=== PATIENT | male | born 1945 | race Caucasian/White ===

== ENCOUNTER → 2017-01-26 | Outpatient (CLI) | payer MEDICARE ==
--- NOTE | 2017-01-28 09:26 | RADIOLOGY REPORT (SQ) ---
EXAM DESCRIPTION: CT LUNG CANCER SCREENING COMPLETED DATE/TIME: 01/26/2017 3:26 pm REASON FOR STUDY: NICOTINE DEPENDENCE (F17.211) F17.211 NICOTINE DEPENDENCE, CIGARETTES, IN REMISSI ON Has the patient had a Chest CT scan within the past year? No Was the patient offered tobacco cessation counseling? No Was the patient engaged in shared decision making for this test? Yes Does the patient have signs or symptoms of Lung Cancer? No Is the patient a smoker? No How many packs per year? 365 How many years since quitting smoking? 12 years Patients age: 71 COMPARISON: None. TECHNIQUE: Low Dose CT scan performed of the chest without intravenous contrast for purposes of scre ening for lung cancer. Images reviewed with lung, soft tissue and bone windows. Reconstructed coron al and sagittal MPR images reviewed. All images stored on PACS. All CT scanners at this facility use dose modulation, iterative reconstruction, and/or weight based d osing when appropriate to reduce radiation dose to as low as reasonably achievable (ALARA). [facility]: Dose Right [facility]: CareDose [facility]: Dose Right [facility]: Teradose 4D [facility]: Proxsys RADIATION DOSE: 2.3 mGy. . LIMITATIONS: No technical limitations. FINDINGS: LUNG NODULES: Multiple tiny less than 3 mm calcified and noncalcified subpleural nodules are present, benign. REMAINING LUNGS AND PLEURA: No pleural effusions or calcifications. No pneumothorax. There is m inimal bandlike scarring in the medial aspect of the right middle lobe and lingula HILAR AND MEDIASTINAL STRUCTURES: No identified masses. No abnormal nodes. HEART AND VASCULAR STRUCTURES: No aortic aneurysm. No pericardial effusion. No cardiac devices. CORONARY ARTERY CALCIFICATIONS: Mild to moderate calcifications. UPPER ABDOMEN, THYROID, BONES, OTHER SOFT TISSUES: No significant findings. Convex leftward upper th oracic curvature IMPRESSION: BENIGN FINDINGS IN THE LUNGS. NO OTHER CLINICALLY SIGNIFICANT/POTENTIALLY CLINICALLY SIGNIFICANT FINDINGS LUNGRADS: LUNGRADS: 2 BENIGN APPEARANCE OR BEHAVIOR. NODULES WITH A VERY LOW LIKELIHOOD OF BECOMING A CLINICALLY ACTIVE CANCER DUE TO SIZE OR LACK OF GROWTH. MODIFIER: NONE. RECOMMENDATION: Continue annual screening with LDCT in 12 months. COMMENT: CRITERIA: Solid nodule(s): < 6 mm; new < 4 mm. Part solid nodule(s): < 6 mm total diameter on baseline screening. Non solid nodule(s) (GGN): < 20 mm OR ? 20 and unchanged or slowly growing. Category 3 or 4 modules unchanged for ? 3 months. TECHNICAL DOCUMENTATION: JOB ID: [id number] Quality ID # [id number]: Final reports with documentation of one or more dose reduction techniques (e.g., Au tomated exposure control, adjustment of the mA and/or kV according to patient size, use of iterative reconstruction technique) 2010 [facility] Radiology
== END ==
LOC: RAD 14:28
PROVIDERS: ATTEND Family Medicine
DX: F17.211 Nicotine dependence, cigarettes, in remission (principal)
CPT/HCPCS: G0297

== ENCOUNTER 2019-01-05 15:32 | Emergency (ER) | payer MEDICARE ==
--- NOTE | 2019-01-05 16:20 | ER Document Report ---
ED Medical Screen (RME) - General Chief Complaint: Leg Pain Stated Complaint: LEG PAIN Time Seen by Provider: 01/05/19 16:14 Primary Care Provider: LAW ARREOLA MD [Primary Care Provider] - Follow up as needed Notes: Patient is a 73-year-old male with a history of hypertension, hypothyroidism, high cholesterol presents emergency department today after being referred by the [facility] care for a ultrasound of the right lower leg. Patient reports yesterday he developed right calf pain. Patient reports he did stop taking baby aspirin 4 days ago as he supposed to have a dental procedure next week. Patient reports he is never had a history of clots but he is concerned that he may have a DVT. Patient reports the calf pain is worse when walking. Patient denies injury or any new exercise. Patient denies chest pain shortness of breath. Patient denies any recent long car rides or travel. TRAVEL OUTSIDE OF THE [place] IN LAST 30 DAYS: No - Related Data Allergies/Adverse Reactions: No Known Allergies Allergy (Verified 01/05/19 16:14) Past Medical History - Social History Chew tobacco use (# tins/day): No Frequency of alcohol use: Occasional Drug Abuse: None Physical Exam - Vital signs Vitals: Temp Pulse Resp BP Pulse Ox 97.6 F 88 18 140/84 H 97 01/05/19 15:37 01/05/19 15:37 01/05/19 15:37 01/05/19 15:37 01/05/19 15:37 - Extremities Notes: Right calf tender to palpation. There is no erythema, edema noted when compared to the left calf. Course - Re-evaluation Re-evalutation: 01/05/19 16:20 Ultrasound of the right lower leg ordered. I have greeted and performed a rapid initial assessment of this patient. A co mprehensive ED assessment and evaluation of the patient, analysis of test results and completion of the medical decision making process will be conducted by additional ED providers. - Vital Signs Vital signs: Temp Pulse Resp BP Pulse Ox 97.6 F 88 18 140/84 H 97 01/05/19 15:37 01/05/19 15:37 01/05/19 15:37 01/05/19 15:37 01/05/19 15:37 Doctor's Discharge - Discharge Referrals: LAW ARREOLA MD [Primary Care Provider] - Follow up as needed
--- NOTE | 2019-01-05 18:14 | ER Document Report ---
ED General - General Chief Complaint: Leg Pain Stated Complaint: LEG PAIN Time Seen by Provider: 01/05/19 16:14 Primary Care Provider: LAW ARREOLA MD [Primary Care Provider] - Follow up as needed Notes: Patient is a 73-year-old male that presents to the emergency department for chief complaint of right calf pain. Patient states that he was referred to the emergency department for rule out for possible DVT. Patient states that yesterday he started having pain in his right calf that was associated with walking describes as a sharp pain. He did not notice any erythema or swelling associated with this. No prior history of DVT or PE. He states he has a surgery coming up to have a dental extraction, and wanted to make sure that he did not have any issues going into the procedure. He states that rest he has no pain or discomfort, and swelling noticed that when he was walking, at its worst it is a 6 out of 10 and sharp in nature as described. Past Medical History: Denies chronic medical conditions Past Surgical History: Denies recent or pertinent surgical history Social History: Denies tobacco, alcohol or drug use. Family History: Reviewed and noncontributory for presenting illness Allergies: Reviewed, see documented allergy list. REVIEW OF SYSTEMS: Other than noted above, the 12 point review of systems was reviewed with the patient and were negative, all pertinent findings are included in the HPI. PHYSICAL EXAMINATION: Vital signs reviewed, nursing noted reviewed. GENERAL: Well-appearing, well-nourished and in no acute distress. HEAD: Atraumatic, normocephalic. EYES: Eyes appear normal, extraocular movements intact, sclera anicteric, conjunctiva are normal. ENT: nares patent, oropharynx clear without exudates. Moist mucous membranes. NECK: Normal range of motion, supple without lymphadenopathy LUNGS: Breath sounds clear to auscultation bilaterally and equal. No wheezes rales or rhonchi. HEART: Regular rate and rhythm without murmurs ABDOMEN: Soft, nontender, normoactive bowel sounds. No rebound, guarding, or rigidity. No masses appreciated. EXTREMITIES: Nontender, good range of motion, no pitting or edema. No significant tenderness to palpation to the lower extremities bilaterally, particularly noted in the calf, there is no significant tenderness, is no edema or erythema noted. Distal pulses are equal bilaterally. Negative Homans sign. NEUROLOGICAL: No focal neurological deficits. Moves all extremities spontaneously Motor and sensory grossly intact on exam. PSYCH: Normal mood, normal affect. SKIN: Warm, Dry, normal turgor, no rashes or lesions noted on exposed skin TRAVEL OUTSIDE OF THE [place] IN LAST 30 DAYS: No - Related Data Allergies/Adverse Reactions: No Known Allergies Allergy (Verified 01/05/19 16:14) Past Medical History - Social History Smoking Status: Former Smoker Chew tobacco use (# tins/day): No Frequency of alcohol use: Occasional Drug Abuse: None Family History: Reviewed & Not Pertinent Patient has suicidal ideation: No Patient has homicidal ideation: No Physical Exam - Vital signs Vitals: Temp Pulse Resp BP Pulse Ox 97.6 F 88 18 140/84 H 97 01/05/19 15:37 01/05/19 15:01/05/19 15:01/05/19 15:01/05/19 15:37 Course - Re-evaluation Re-evalutation: Patient seen and examined, vital signs reviewed, patient had duplex imaging performed of his right lower extremity, that was negative for DVT, clinically the patient had a low suspicion for DVT, and no clinical symptoms consistent with swollen, on his exam, or with his history. I discussed the results with the patient, advised him to otherwise follow-up with his primary care, and that he can proceed to have his dental procedure. Patient understood and is in agreement with this plan of care and discharged home. - Vital Signs Vital signs: Temp Pulse Resp BP Pulse Ox 97.6 F 88 18 140/84 H 97 01/05/19 15:37 01/05/19 15:37 01/05/19 15:37 01/05/19 15:37 01/05/19 15:37 Discharge - Discharge Clinical Impression: Leg pain Qualifiers: Laterality: right Qualified Code(s): M79.604 - Pain in right leg Condition: Stable Disposition: HOME, SELF-CARE Instructions: Leg Pain Nonspecific ([facility]) Additional Instructions: Your testing was negative today for a blood clot, you can have your dental procedure, otherwise please follow-up with your primary care physician, I do not believe any further testing is needed at this point. Referrals: LAW ARREOLA MD [Primary Care Provider] - Follow up in 3-5 days
[2019-01-05 19:03] VITALS: BP 140/89
--- NOTE | 2019-01-05 19:42 | XCELERA REPORT ---
[address] [address] Lower Extremity Venous Evaluation Procedure: Color flow and duplex imaging of the veins of the right lower extremity as well as the left Common Femoral vein. Right Sided Venous Evaluation Normal vessel filling wall to wall, compression and augmentation as well as Colour flow down to the infrageniculate veins. Left Sided Venous Evaluation The left common femoral vein is fully compressible. Spontaneous and phasic flow is present in the left common femoral vein. Critical Findings Called in to Dr Kent at 1940. Interpretation Summary No duplex evidence of DVT or obstruction in the right lower extremity nor in the left Common Femoral vein. Name: GO KENT Age: 73 yrs Gender: Male : 1945 Patient Status: Emergency Patient Location: ER Study Date: 01/05/2019 06:12 PM Reason For Study: right calf pain, recently stopped ASA Ordering Physician: RICHA COLUNGA Performed By: Gaby Morton : RICHA COLUNGA > Valentino Mora
== END 2019-01-05 19:03 | disposition home or self-care (01) ==
LOC: ER 15:32
DX: M79.604 Pain in right leg (principal); Z87.891 Personal history of nicotine dependence
CPT/HCPCS: 93971; 99283

== ENCOUNTER 2019-04-25 18:58 | Emergency (ER) | payer MEDICARE ==
--- NOTE | 2019-04-25 19:57 | ER Document Report ---
ED Medical Screen (RME) - General Chief Complaint: Dizziness Stated Complaint: DIZZINESS Time Seen by Provider: 04/25/19 19:47 Primary Care Provider: LAW ARREOLA MD [Primary Care Provider] - Follow up as needed Mode of Arrival: Ambulatory Information source: Patient Notes: 73-year-old male presents emergency department with complaints of dizziness every time he stands. Reports symptoms started tonight. Denies chest pain shortness of breath. Denies history of cardiac disease. Reports he believes he has fluid in his ears and that was happening. No other complaints such as fever vomiting diarrhea. Patient is nontoxic looking respiratory rate even unlabored. I have greeted and performed a rapid initial assessment of this patient. A comprehensive ED assessment and evaluation of the patient, analysis of test results and completion of the medical decision making process will be conducted by additional ED providers. TRAVEL OUTSIDE OF THE [place] IN LAST 30 DAYS: No - Related Data Allergies/Adverse Reactions: No Known Allergies Allergy (Verified 01/05/19 16:14) Past Medical History - Past Medical History Cardiac Medical History: Reports: Hx Hypercholesterolemia, Hx Hypertension Past Surgical History: Reports: Hx Genitourinary Surgery - fistula repair, Hx Tonsillectomy Physical Exam - Vital signs Vitals: Temp Pulse Resp BP Pulse Ox 97.9 F 83 18 134/72 H 98 04/25/19 19:05 04/25/19 19:05 04/25/19 19:05 04/25/19 19:05 04/25/19 19:05 Course - Vital Signs Vital signs: Temp Pulse Resp BP Pulse Ox 97.9 F 83 18 134/72 H 98 04/25/19 19:05 04/25/19 19:05 04/25/19 19:05 04/25/19 19:05 04/25/19 19:05 Doctor's Discharge - Discharge Referrals: LAW ARREOLA MD [Primary Care Provider] - Follow up as needed
[2019-04-25 20:41] LABS: ABSOLUTE BASOPHILS # (AUTO) 0.1 10^3/uL (0.0-0.2); ABSOLUTE EOSINOPHILS # (AUTO) 0.3 10^3/uL (0.0-0.6); ABSOLUTE LYMPHOCYTES (AUTO) 1.5 10^3/uL (0.5-4.7); ABSOLUTE MONOCYTES (AUTO) 0.6 10^3/uL (0.1-1.4); ABSOLUTE NEUT (AUTO) 3.8 10^3/uL (1.7-8.2); EOSINOPHILS % (AUTO) 4.7 % (0-6); HEMATOCRIT 43.5 % (37.9-51.0); HEMOGLOBIN 15.7 g/dL (13.5-17.0); MEAN CORPUSCULAR HEMOGLOBIN 31.8 pg (27.0-33.4); MEAN CORPUSCULAR HGB CONC 36.1 g/dL (32.0-36.0); MEAN CORPUSCULAR VOLUME 88 fl (80-97); MONOCYTES % (AUTO) 8.9 % (3-13); PLATELET COUNT 194 10^3/uL (150-450); RED BLOOD COUNT 4.94 10^6/uL (4.35-5.55); RED CELL DISTRIBUTION WIDTH 12.7 % (11.5-14.0); SEGMENTED NEUTROPHILS % (AUTO) 61.4 % (42-78); TOTAL CELLS COUNTED % (AUTO) 100 %; WHITE BLOOD COUNT 6.2 10^3/uL (4.0-10.5)
[2019-04-25 21:02] LABS: ALBUMIN 4.5 g/dL (3.5-5.0); ALKALINE PHOSPHATASE 72 U/L (38-126); ANION GAP 11 (5-19); ASPARTATE AMINO TRANSFERASE 35 U/L (17-59); BILIRUBIN,DIRECT 0.2 mg/dL (0.0-0.4); BILIRUBIN,TOTAL 0.5 mg/dL (0.2-1.3); BLOOD UREA NITROGEN 17 mg/dL (7-20); CALCIUM 9.9 mg/dL (8.4-10.2); CARBON DIOXIDE 28 mmol/L (22-30); CHLORIDE 99 mmol/L (98-107); GLUCOSE 134 mg/dL (75-110); POTASSIUM 3.8 mmol/L (3.6-5.0); TOTAL PROTEIN 7.7 g/dL (6.3-8.2)
--- NOTE | 2019-04-25 21:29 | EKG REPORT ---
SEVERITY:- OTHERWISE NORMAL ECG - SINUS RHYTHM BORDERLINE LEFT AXIS DEVIATION : Confirmed by: Liana Mercer MD 25-Apr-2019 21:28:47
--- NOTE | 2019-04-25 22:14 | RADIOLOGY REPORT (SQ) ---
EXAM DESCRIPTION: [facility]: XR CHEST 2 VIEWS Views: 2 CLINICAL HISTORY: 73 years Male; dizziness; COMPARISON: None. FINDINGS: The lungs are clear. No pneumothorax or significant pleural effusion. Cardiomediastinal silhouette is within normal limits. Bony structures are unremarkable for age. IMPRESSION: 1. No acute cardiothoracic abnormality.
[2019-04-25] MEDS ORDERED: MECLIZINE HCL 25 MG TABLET PO ONE (22:29)
[2019-04-25] MEDS ORDERED: PREDNISONE 20 MG TABLET PO ONE (22:30)
--- NOTE | 2019-04-25 22:30 | ER Document Report ---
ED Dizziness/Weakness - General Chief Complaint: Dizziness Stated Complaint: DIZZINESS Time Seen by Provider: 04/25/19 19:47 Primary Care Provider: LAW ARREOLA MD [Primary Care Provider] - Follow up as needed Mode of Arrival: Ambulatory Information source: Patient Notes: 73-year-old man presents to the emergency room department with imbalance and dizziness. He apparently has had RSV diagnosed in the last week or so. He is complaint of feeling off balance and fluid behind his eardrums. He denies fever, chest pain, syncope or presyncope. TRAVEL OUTSIDE OF THE [place] IN LAST 30 DAYS: No - Related Data Allergies/Adverse Reactions: No Known Allergies Allergy (Verified 01/05/19 16:14) Home Medications: levothyroxine, rosuvastatin, losarten, lutel, benadryl, annivert, multivitamin, reservatrol, zinc, cla, b12, flaxseed, calcium, coq10 Past Medical History - General Information source: Patient - Social History Smoking Status: Former Smoker Chew tobacco use (# tins/day): No Frequency of alcohol use: None Drug Abuse: None Family History: Reviewed & Not Pertinent Patient has suicidal ideation: No Patient has homicidal ideation: No - Past Medical History Cardiac Medical History: Reports: Hx Hypercholesterolemia, Hx Hypertension Past Surgical History: Reports: Hx Genitourinary Surgery - fistula repair, Hx Tonsillectomy Review of Systems - Review of Systems Notes: Constitutional: Negative for fever. HENT: +dizziness, +ear fullness Eyes: Negative for visual changes. Cardiovascular: Negative for chest pain. Respiratory: Negative for shortness of breath. Gastrointestinal: Negative for abdominal pain, vomiting or diarrhea. Genitourinary: Negative for dysuria. Musculoskeletal: Negative for back pain. Skin: Negative for rash. Neurological: Negative for headaches, weakness or numbness. 10 point ROS negative except as marked above and in HPI. Physical Exam - Vital signs Vitals: Temp Pulse Resp BP Pulse Ox 97.9 F 83 18 134/72 H 98 04/25/19 19:05 04/25/19 19:05 04/25/19 19:05 04/25/19 19:05 04/25/19 19:05 - Notes Notes: PHYSICAL EXAMINATION: Physical Exam: General: Well-nourished well-developed in no acute distress HEENT: NC/AT, pupils equal round and reactive to light, MM moist,nares clear, TM, dull, cloudy bilaterally, no nystagmus Neck: supple, no adenopathy, no masses. Lungs: clear, no wheezing, no rales no rhonchi CVS: Regular rate and rhythm no murmur gallop or rub Abdomen: Soft active nontender, no masses, no hepatosplenomegaly Ext: No edema clubbing or cyanosis. Neuro: Alert and responsive, moving all 4 extremities on command, cranial nerves intact. Skin: Intact no open lesions, no rash PSYCH: Normal mood, normal affect. Course - Vital Signs Vital signs: Temp Pulse Resp BP Pulse Ox 97.9 F 83 20 125/72 95 04/25/19 19:05 04/25/19 19:05 04/25/19 23:01 04/25/19 23:01 04/25/19 23:01 - Laboratory Result Diagrams: 04/25/19 20:25 04/25/19 20:25 Laboratory results interpreted by me: 04/25/19 04/25/19 20:25 20:25 [facility] 36.1 H Glucose 134 H Discharge - Discharge Clinical Impression: Vertigo Acute serous otitis media of both ears Qualifiers: Recurrence: not specified as recurrent Qualified Code(s): H65.03 - Acute serous otitis media, bilateral Condition: Good Disposition: HOME, SELF-CARE Instructions: Dizziness ([facility]), Meclizine ([facility]), Vertigo ([facility]) Additional Instructions: Please use the medications as prescribed, meclizine, prednisone Follow-up with your doctor as needed Return to the emergency department if needed Referrals: LAW ARREOLA MD [Primary Care Provider] - Follow up as needed
[2019-04-25 23:59] VITALS: BP 102/71
== END 2019-04-25 23:58 | disposition home or self-care (01) ==
LOC: ER 18:58
DX: H65.03 Acute serous otitis media, bilateral (principal); R42 Dizziness and giddiness; Z87.891 Personal history of nicotine dependence; Z79.899 Other long term (current) drug therapy; I10 Essential (primary) hypertension
CPT/HCPCS: 93005; 99284; 36415; 85025; 80053; 84484; 71046; 93010; A9270 ×2; J7512

== ENCOUNTER 2019-06-19 07:12 | Emergency (ER) | payer MEDICARE ==
--- NOTE | 2019-06-19 09:30 | ER Document Report ---
ED General - General Chief Complaint: Rib Pain Stated Complaint: FALL/RIB PAIN/CONSTIPATION Time Seen by Provider: 06/19/19 08:12 Primary Care Provider: LAW ARREOLA MD [Primary Care Provider] - Follow up as needed TRAVEL OUTSIDE OF THE [place] IN LAST 30 DAYS: No - HPI Notes: 74-year-old male was working in his garage on a stepladder approximately 3 days ago when he lost his footing and fell to his left side striking his left lower rib area against the mauricio of a parked automobile. There was no head or neck injury. Since then the patient has been experiencing pain left flank area. This is minimal when he is sitting still but is severe when he takes a deep breath or if he moves from a sitting to standing position. He denies any visible ecchymoses. He takes an aspirin occasionally but is on no prescription anticoagulant. Patient has been taking some acetaminophen and NSAID with partial relief of his discomfort. Patient also says he has been constipated and has not had a bowel movement since the injury. He denies any difficulty voiding or any hematuria. - Related Data Allergies/Adverse Reactions: No Known Allergies Allergy (Verified 06/19/19 08:01) Home Medications: Albuterol, Prednisone Past Medical History - General Information source: Patient - Social History Smoking Status: Unknown if Ever Smoked Family History: Reviewed & Not Pertinent Patient has suicidal ideation: No Patient has homicidal ideation: No - Past Medical History Cardiac Medical History: Reports: Hx Hypercholesterolemia, Hx Hypertension Past Surgical History: Reports: Hx Genitourinary Surgery - fistula repair, Hx Tonsillectomy Review of Systems - Review of Systems Notes: Constitutional: Negative for fever. HENT: Negative for sore throat. Eyes: Negative for visual changes. Cardiovascular: As per HPI. Respiratory: Has as per HPI. Gastrointestinal: Negative for abdominal pain, vomiting or diarrhea. Genitourinary: Negative for dysuria. Musculoskeletal: As per HPI. Skin: Negative for rash. Neurological: Negative for headaches, weakness or numbness. 10 point ROS negative except as marked above and in HPI. Physical Exam - Vital signs Vitals: Temp Pulse Resp BP Pulse Ox 98.6 F 109 H 16 132/77 H 96 06/19/19 07:18 06/19/19 07:18 06/19/19 07:18 06/19/19 07:18 06/19/19 07:18 - Notes Notes: GENERAL: Well-developed well-nourished appearing in no acute distress. SKIN: Good turgor no rashes. HEAD: Normocephalic atraumatic. EYES: PERRLA. EOMI. Conjunctivae and sclerae clear. EARS: CANALS AND TMS CLEAR. NOSE: CLEAR. MOUTH: Moist mucosa. Good dentition. No stridor or edema. No drooling. NECK: Supple. No masses or thyromegaly. No adenopathy. Carotids 2+ without bruits. No JVD. BACK: Patient is exquisitely tender over the left lower rib cage posterior axillary line at about the level of the 10th rib. No visible ecchymosis or palpable crepitus. CHEST: Respirations unlabored. Breath sounds clear and symmetrical. Mild splinting on the left. HEART: Regular rhythm. No murmur gallop or rub. ABDOMEN: Soft nontender without masses, organomegaly or rebound. Bowel sounds normally active. No bruits. GENITALIA: Deferred. EXTREMITIES: Mild degenerative changes in her phalangeal joints of both hands. No edema. No calf tenderness. Cap refill less than 1.5 seconds. Dorsalis pedis and posterior tibial pulses 3+ and symmetrical. NEUROLOGICAL: GCS 15. Alert and oriented x3. Normal gait. Fluent speech. Cranial nerves II through XII intact. Sensorimotor and cerebellar normal. Normal tone. PSYCHIATRIC: Appropriate affect. Course - Re-evaluation Re-evalutation: 06/19/19 11:19 Urinalysis is unremarkable. CBC is basically all normal. Acute abdominal series showed no displaced fracture of the ribs on the left side. He does have a lot of retained stool in the colon. Findings were discussed with patient. I explained to him that clinically he has a rib fracture although this is nondisplaced. We talked about options for management he wants to avoid narcotics if possible. I told him this is reasonable he may continue Tylenol and OTC NSAIDs at home as needed. Further explained that it may take 6 to 8 weeks for this to heal and we talked about potential complications of rib fractures etc. Patient would like to get an enema before he leaves today to relieve his constipation. We will administer a fleets enema and I will give him a prescription for MiraLAX for use at home. He may follow-up with primary care doctor thereafter. - Vital Signs Vital signs: Temp Pulse Resp BP Pulse Ox 98.6 F 109 H 16 132/77 H 96 06/19/19 07:18 06/19/19 07:18 06/19/19 07:18 06/19/19 07:18 06/19/19 07:18 - Laboratory Result Diagrams: 06/19/19 09:43 Laboratory results interpreted by me: 06/19/19 09:43 RDW 14.1 H Lymph % (Auto) 9.3 L Seg Neutrophils % 80.3 H Discharge - Discharge Clinical Impression: Constipation Left rib fracture Qualifiers: Encounter type: initial encounter Rib fracture type: single rib Fracture type: closed Qualified Code(s): S22.32XA - Fracture of one rib, left side, initial encounter for closed fracture Condition: Stable Disposition: HOME, SELF-CARE Instructions: Constipation ([facility]) Additional Instructions: Rib Injuries and Fractures You have been diagnosed as having either bruised or broken ribs. These two injuries are treated in the same way. It will usually take four to six weeks for these injured ribs to heal. Sometimes, rib belts or anesthetic injections of the chest wall help reduce the pain. If you are using a rib belt, you should cough or take a deep breath at least every hour or two to prevent lung complications. You should not engage in any strenuous physical activity until released by your physician. The usual rule is "if it hurts, don't do it." Rib fractures can lead to serious lung complications including lung collapse, hemorrhage, and pneumonia. You should call the physician or return at once if any of the following occur: (1) Fever or chills. (2) Persistent cough, coughing up blood, or shortness of breath. (3) Increasing pain. (4) Weakness, lightheadedness, or fainting. Tylenol and [id number] non-steroidal anti-inflammatory medications may be helpful for your pain. MiraLAX as needed for constipation. Follow-up within the next 1 week with your primary care provider. Return here as needed for new or worsening symptoms: Pain that is worsening or unimproved Uncontrolled vomiting High fever or shaking chills Overall worsening Prescriptions: Polyethylene Glycol 3350 [Miralax] 1 cap PO DAILY #527 powder Referrals: MAXWELL,LAW, MD [Primary Care Provider] - Follow up as needed
[2019-06-19 10:13] LABS: ABSOLUTE BASOPHILS # (AUTO) 0.1 10^3/uL (0.0-0.2); ABSOLUTE EOSINOPHILS # (AUTO) 0.3 10^3/uL (0.0-0.6); ABSOLUTE LYMPHOCYTES (AUTO) 0.9 10^3/uL (0.5-4.7); ABSOLUTE MONOCYTES (AUTO) 0.6 10^3/uL (0.1-1.4); ABSOLUTE NEUT (AUTO) 7.7 10^3/uL (1.7-8.2); BASOPHILS % (AUTO) 0.7 % (0-2); EOSINOPHILS % (AUTO) 3.4 % (0-6); HEMATOCRIT 41.1 % (37.9-51.0); HEMOGLOBIN 14.8 g/dL (13.5-17.0); LYMPHOCYTES % (AUTO) 9.3 % (13-45); MEAN CORPUSCULAR HEMOGLOBIN 32.1 pg (27.0-33.4); MEAN CORPUSCULAR HGB CONC 35.9 g/dL (32.0-36.0); MEAN CORPUSCULAR VOLUME 89 fl (80-97); MONOCYTES % (AUTO) 6.3 % (3-13); PLATELET COUNT 160 10^3/uL (150-450); RED CELL DISTRIBUTION WIDTH 14.1 % (11.5-14.0); SEGMENTED NEUTROPHILS % (AUTO) 80.3 % (42-78); TOTAL CELLS COUNTED % (AUTO) 100 %; WHITE BLOOD COUNT 9.6 10^3/uL (4.0-10.5)
[2019-06-19 10:15] LABS: APPEARANCE,URINE SLIGHTLY-CLOUDY; BILIRUBIN,URINE NEGATIVE (NEGATIVE); COLOR,URINE YELLOW; GLUCOSE, URINE NEGATIVE (NEGATIVE); KETONES,URINE NEGATIVE (NEGATIVE); PROTEIN,URINE NEGATIVE (NEGATIVE); URINE SPECIFIC GRAVITY 1.014; UROBILINOGEN,URINE NEGATIVE mg/dL (<2.0)
--- NOTE | 2019-06-19 10:23 | RADIOLOGY REPORT (SQ) ---
EXAM DESCRIPTION: ACUTE ABDOMEN SERIES COMPLETED DATE/TIME: 06/19/2019 10:08 am REASON FOR STUDY: left lower rib injury constipation COMPARISON: None. NUMBER OF VIEWS: Three views. TECHNIQUE: Frontal chest, supine abdomen and upright/decubitus abdomen radiographic images acquired. LIMITATIONS: None. FINDINGS: CHEST: Lungs clear of infiltrates. FREE AIR: None. No abnormal gas collections. BOWEL GAS PATTERN: Abundant fecal material cecum to rectum. No dilated loops or air fluid levels. CALCIFICATIONS: No suspicious calcifications. HARDWARE: None in the abdomen. SOFT TISSUES: Radiation seed markers overlying the prostate. BONES: No acute fracture. No worrisome bone lesions. OTHER: No other significant finding. IMPRESSION: Mild fecal retention. TECHNICAL DOCUMENTATION: JOB ID: [id number] 2010 [employer]- All Rights Reserved Reading location - IP/workstation name: [email or web address]
[2019-06-19] MEDS ORDERED: NA PHOS,M-B/NA PHOS,DI-BA (ADULT) 133 ML ENEMA PR ONE (11:18)
[2019-06-19 12:21] VITALS: BP 125/80
== END 2019-06-19 12:26 | disposition home or self-care (01) ==
LOC: ER 07:12
DX: S22.32XA Fracture of one rib, left side, initial encounter for closed fracture (principal); W11.XXXA Fall on and from ladder, initial encounter; Y93.89 Activity, other specified; Y92.008 Other place in unspecified non-institutional (private) residence as the place of occurrence of the external cause; K59.00 Constipation, unspecified; I10 Essential (primary) hypertension; Z79.899 Other long term (current) drug therapy; Z79.52 Long term (current) use of systemic steroids
CPT/HCPCS: 99284; 36415; 85025; 81001; 74022; A9270; J3490